=== PATIENT | male | born 1960 | race Two or more races ===

== ENCOUNTER 2020-07-27 06:37 | Day surgery (SDC) | payer OTHER ==
[~2020-07-27 06:37] MED LIST: ADULT LOW DOSE81 M1 PO; AVAPRO300 MG PO; BIOCEL TABLET1 EACH PO; GLIPIZIDE XL10 MG PO; LIPITOR40 MG PO; METFORMIN HCL1000 M2 PO; SYNTHROID50 MCG PO
[2020-07-27] MEDS ORDERED: PERCOCET 5-3251 EACH PO (13:07)
[2020-07-28] MEDS ORDERED: TAMS0.4C PO (18:45)
== END 2020-07-27 16:20 | disposition home or self-care (01) ==
LOC: CIR.AMB 06:37
PROVIDERS: ATTEND Surgery
DX: C73 Malignant neoplasm of thyroid gland (principal); Z20.822 Contact with and (suspected) exposure to COVID-19

== ENCOUNTER 2020-07-28 15:14 | Emergency (ER) | payer OTHER ==
[~2020-07-28] VITALS: Ht 185.4 cm; Wt 113.4 kg
[~2020-07-28 15:14] MED LIST changes: +PERCOCET 5-3251 EACH PO
[2020-07-28] MEDS ORDERED: TAMS0.4C PO (18:45)
== END 2020-07-28 19:28 | disposition home or self-care (01) ==
LOC: ER 15:14
DX: N99.89 Other postprocedural complications and disorders of genitourinary system (principal); R30.0 Dysuria; Y83.8 Other surgical procedures as the cause of abnormal reaction of the patient, or of later complication, without mention of misadventure at the time of the procedure